=== PATIENT | female | born 1980 | race Two or more races ===

== ENCOUNTER 2025-02-06 08:54 | Emergency (ER) | payer BC, SELFPAY ==
[2025-02-06 09:17] VITALS: BP 127/86; PULSE 60; RESP 16; TEMP 37.1; O2SAT 99; BMI 35.4
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
== END 2025-02-06 11:36 | disposition home or self-care (01) ==
PROVIDERS: Emergency Provider Nurse Practitioner Family; PCP Physician Assistant
DX: S13.4XXA Sprain of ligaments of cervical spine, initial encounter (principal); S49.92XA Unspecified injury of left shoulder and upper arm, initial encounter; S09.90XA Unspecified injury of head, initial encounter; S79.912A Unspecified injury of left hip, initial encounter; V89.2XXA Person injured in unspecified motor-vehicle accident, traffic, initial encounter
CPT/HCPCS: 70450; 72125; 73030; 73502; 99284

== ENCOUNTER 2025-03-23 08:29 | Emergency (ER) | payer BC, SELFPAY ==
[2025-03-23 08:30] VITALS: BMI 33.2
[2025-03-23 08:38] VITALS: BP 161/92; PULSE 88; RESP 22; TEMP 36.9; O2SAT 99
--- NOTE | 2025-03-23 08:43 | XR_ITS ---
EXAMINATION: PA chest single view TECHNIQUE: Upright PA chest single view Date and time: March 23, 2025, 0854 hours INDICATION: Chest pain shortness of breath today FINDINGS: Normal heart size The lungs are clear. Osseous structures are intact IMPRESSION: No active disease
[2025-03-23] MEDS: DEXAMETHASONE SOD PHOS INJ 10 MG/ML VIAL PO (08:51)
--- NOTE | 2025-03-23 09:06 | EDNOTE_ITS ---
ED SOB =RME/HPI General Chief Complaint: Shortness of Breath/Dyspnea Stated Complaint: SOB Time Seen by Provider: 03/23/25 08:38 Source: patient Arrival date/time: 03/23/25 08:29 44-year-old female with no known medical history presents to the emergency room with a chief complaint of shortness of breath x 2 days. Patient states she had an episode of accidentally inhaling Clorox while cleaning yesterday afternoon. Mode of arrival: ambulatory Limitations: no limitations Related Data Home Medications ?Medication ?Instructions ?Recorded ?Confirmed valsartan 40 mg tablet 40 mg PO DAILY 07/27/2207/09 Allergies Allergy/AdvReac Type Severity Reaction Status Date / Time No Known Allergies Allergy Verified 02/06/25 08:58 Review of Systems Review of Systems Systems Reviewed: All systems reviewed, normal except as documented Constitutional Constitutional: Reports system reviewed and no additional complaints, except as documented, Denies fatigue, Denies fever(s), Denies headache(s) and Denies weakness Eyes Eyes: Reports system reviewed and no additional complaints, except as documented, Denies blurry vision and Denies change in vision ENT Ears, Nose, Mouth, and Throat: Reports system reviewed and no additional complaints, except as documented, Denies otalgia, Denies headache(s), Denies nasal congestion, Denies throat swelling and Denies vertigo Cardiovascular Cardiovascular: Reports system reviewed and no additional complaints, except as documented, Denies chest pain, Denies dyspnea and Denies dyspnea on exertion Respiratory Respiratory: Reports system reviewed and no additional complaints, except as documented, Denies chest congestion, Denies cough, Denies dyspnea, Denies dyspnea on exertion and Reports wheezing Gastrointestinal Gastrointestinal: Reports system reviewed and no additional complaints, except as documented, Denies abdominal pain, Denies cramping, Denies nausea and Denies vomiting Genitourinary Genitourinary: Reports system reviewed and no additional complaints, except as documented Musculoskeletal Musculoskeletal: Reports system reviewed and no additional complaints, except as documented and Denies back pain Integumentary/Breasts Skin/Breast: Reports system reviewed and no additional complaints, except as documented and Denies wounds Neurologic Neurologic: Reports system reviewed and no additional complaints, except as documented, Denies confusion, Denies headache(s), Denies lack of coordination, Denies vertigo and Denies weakness Psychiatric Psychiatric: Reports system reviewed and no additional complaints, except as documented, Denies anxiety, Denies confusion, Denies depression, Denies paranoia, Denies suicidal ideation and Denies tactile hallucinations Endocrine Endocrine: Reports system reviewed and no additional complaints, except as documented and Denies fatigue Hematologic/Lymphatic Hematologic/Lymphatic: Reports system reviewed and no additional complaints, except as documented and Denies lymphadenopathy Allergic/Immunologic Allergic/Immunologic: Reports system reviewed and no additional complaints, except as documented, Denies throat swelling, Denies urticaria and Reports wheezing ED Exam General Limitations: Present no limitations General appearance: Present alert and in no apparent distress Head Head exam: Present atraumatic Eye Eye exam: Present normal appearance, PERRL and EOMI ENT ENT exam: Present normal exam, normal oropharynx and mucous membranes moist Neck Neck exam: Present normal inspection, full ROM and trachea midline Chest Chest inspection: Present normal inspection and symmetric chest wall rise Respiratory Respiratory exam: Present normal lung sounds bilaterally and wheezes; Absent respiratory distress, stridor, accessory muscle use or prolonged expiratory phase Expanded Respiratory Exam Location: Left: wheezes, Right: wheezes, Upper: wheezes and Lower: wheezes Cardiovascular Cardiovascular exam: Present regular rate, normal rhythm and normal heart sounds Abdominal Exam Abdominal exam: Present soft and normal bowel sounds Extremities Exam Extremities exam: Present normal inspection and full ROM Back Exam Back exam: Present normal inspection and full ROM Neurological Exam Neurological exam: Present alert, oriented X3 and CN II-XII intact Psychiatric Psychiatric exam: Present normal affect and normal mood Skin Skin exam: Present warm, dry, intact and normal color Course Quality Measures none Orders Category Date Time Status EKG (ED ONLY) *Do not use* NOW Care 03/23/25 09:50 Completed EKG (ED Only) Stat Exams 03/23/25 09:50 Draft XR chest 1V portable Stat Exams 03/23/25 08:43 Completed B-Type Natriuretic Peptide Stat Lab 03/23/25 10:10 Completed CBC Stat Lab 03/23/25 10:10 Completed Comprehensive Metabolic Panel Stat Lab 03/23/25 10:10 Completed Free T4 (Free Thyroxine) Stat Lab 03/23/25 10:10 Completed TSH [Thyroid Stimulating Hormone] Stat Lab 03/23/25 10:10 Completed Troponin I Stat Lab 03/23/25 10:10 Completed Albuterol/Ipratr Rt Rachel [Duoneb Rt Rachel] Med 03/23/25 08:43 Discontinued 3 ml INH X1 ONE Dexamethasone Inj [Decadron Inj] Med 03/23/25 08:43 Discontinued 10 mg PO X1 ONE Vital Signs Vital signs: Vital Signs Temperature 98.5 F 03/23/25 08:38 Pulse Rate 88 03/23/25 08:38 Respiratory Rate 22 H 03/23/25 08:38 Blood Pressure 161/92 H 03/23/25 08:38 Pulse Oximetry (%) 99 03/23/25 08:38 Oxygen Delivery Method Room Air 03/23/25 08:38 PROCEDURES: EKG Interpretation #1: Date of EK03/23/25 Time of EK:46 Rate: 63 Interpretation: Reviewed by me EKG Impression: Normal sinus rhythm Shortness of Breath / Dyspnea MDM Narrative MDM Narrative:: 44-year-old female with no known medical history presents to the emergency room with a chief complaint of shortness of breath x 2 days. Patient states she had an episode of accidentally inhaling Clorox while cleaning yesterday afternoon. Patient is hemodynamically stable and in no apparent distress Physical examination shows some wheezing to the upper and lower lobes. The patient has a strong and regular rhythm S1 and S2 noted. The patient is also complaining of some mild chest pain and palpitations. EKG shows normal sinus rhythm at [address] deviation. CBC CMP troponin were all within normal limits. Chest x-ray was negative for any pneumonic infiltrate. A breathing treatment and steroids were given with significant improvement to the patient's symptoms Patient was discharged and educated to follow-up with primary care provider in the next 24 to 48 hours and return to the emergency room for any evidence of worsening signs or symptoms Patient data External records reviewed:: [facility] previous records Clinical information provided by:: patient Social determinants that could affect healthcare access:: none Patient has the following chronic illnesses:: No chronic illness How is presenting disease/condition affected by chronic disease/condition?: no chronic disease Evaluation data The following diagnostics were reviewed and interpreted by me:: lab results and radiology exam(s) Lab and/or radiology exams considered but not ordered:: Labs and radiology exams considered and ordered Interpretation Summary: Chest [id number]: Normal heart size The lungs are clear. Osseous structures are intact IMPRESSION: No active disease Medications / Prescriptions Medications or Prescriptions considered but not ordered:: Medication given Medication administrations:: Medication Administration History Discontinued Medications Albuterol/Ipratropium (Albuterol/Ipratropium (Duoneb) Rt Rachel 3 Ml Nebu) 3 ml INH X1 ONE Stop: 03/23/25 08:44 Last Admin: 03/23/25 09:29 Dose: 3 ml Documented By: CLIVE Dexamethasone Sodium Phosphate (Dexamethasone Sod Phos Inj 10 Mg/Ml Vial) 10 mg PO X1 ONE Stop: 03/23/25 08:44 Last Admin: 03/23/25 08:51 Dose: 10 mg Documented By: VG Medication given Consultations Consultation(s) initiated? (list below): No Diagnosis Shortness of Breath Differential Diagnosis: community acquired pneumonia and other (Shortness of breath/) Most likely diagnosis given after review of the tests above:: Shortness of breath Admission Indicated Admission indicated?: not indicated Admission Request Was there a request for admission?: No Disposition Plan Disposition Plan: Discharge Discharge Attestation Discharge Attestation: The patient and all family members were given an opportunity to ask questions and understood the discharge instructions. Discharge instructions specifically effects, indications for sooner follow up or return to the emergency department, and the expected course of current diagnosis. Patient condition: Stable Discharge Plan Plan Patient Disposition: HOME (Self Care) Discharge Disposition comment: Stable Prescriptions/Referrals Prescriptions/Med Rec: No Action valsartan 40 mg Tablet 40 mg PO DAILY Referrals: No Primary/Family,Physician [Primary Care Provider] - In 1 week Problem List Clinical Impression: Shortness of breath Patient/Caregiver Discharge Instructions Education Materials: ED Shortness of Breath (Dyspnea) Additional Instructions: Please follow-up with your primary care provider in the next 24 to 48 hours Chest x-ray was negative for any pneumonia or any acute findings Your blood work and urinalysis were within normal limits. Your cardiac examination was within normal limits Patient was discharged and educated to follow-up with primary care provider in the next 24 to 48 hours and return to the emergency room for any evidence of worsening signs or symptoms Print Language: Ethiopian Stand Alone Forms: Rebecca Award Info., Work/School Release, Patient Portal Info Letter PA/[employer] Supervising Physician PA/[employer] Supervising Physician: Dr. Escamilla
[2025-03-23] MEDS: ALBUTEROL/IPRATROPIUM (Duoneb) RT SOL 3 ML NEBU INH (09:29)
[2025-03-23 09:31] VITALS: PULSE 75; RESP 21; O2SAT 100
--- NOTE | 2025-03-23 09:50 | EKG_ITS ---
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
[2025-03-23 10:17] LABS: Basophils # (Auto) 0.1 Thou/mm3 (0.0-0.2); Basophils % (Auto) 1 % (0-2.5); Eosinophils # (Auto) 0.2 Thou/mm3 (0.0-0.5); Eosinophils % (Auto) 3 % (0-10); Hematocrit 40.3 % (36.0-46.0); Hemoglobin 13.8 g/dL (12.0-16.0); Immature Granulocytes Auto 0.03 Thou/mm3 (0.00-0.00); Lymphocytes # (Auto) 2.5 Thou/mm3 (1.0-4.8); Lymphocytes % (Auto) 34 % (10-50); Mean Corpuscular HGB Conc 34.2 g/dl (31.0-37.0); Mean Corpuscular Hemoglobin 28.7 pg (25.0-35.0); Mean Corpuscular Volume 84 fL (80-100); Monocytes # (Auto) 0.3 Thou/mm3 (0.0-0.8); Monocytes % (Auto) 4 % (0-12); Neutrophils # (Auto) 4.4 Thou/mm3 (1.8-7.7); Neutrophils % (Auto) 59 % (37-80); Nucleated Red Blood Cell # 0.00 Thou/mm3 (0.00-0.00); Nucleated Red Blood Cell % 0 /100 WBC (0); Platelet Count 251 Thou/mm3 (140-440); RDW Standard Deviation 39.5 fL (36.4-46.3); Red Blood Count 4.81 Miln/mm3 (4.00-5.20); White Blood Count 7.5 Thou/mm3 (3.6-11.0)
[2025-03-23 10:35] LABS: B-Type Natriuretic Peptide 23 pg/mL (0-100)
[2025-03-23 10:39] LABS: Alanine Aminotransferase 20 U/L (10-49); Albumin, Serum 5.2 gm/dL (3.5-5.0); Albumin/Globulin Ratio 2.3 (1.2-2.2); Alkaline Phosphatase 99 U/L (46-116); Anion Gap 11 (7-16); Aspartate Amino Transferase 24 U/L (0-34); BUN/Creatinine Ratio 14 Ratio (12-20); Bilirubin,Total 0.5 mg/dL (0.3-1.2); Blood Urea Nitrogen 11 mg/dL (9-23); Calcium 9.8 mg/dL (8.3-10.6); Calcium (Corrected) 9.8 mg/dL (8.5-10.1); Carbon Dioxide 24.7 mMol/L (20.0-31.0); Chloride 106 mMol/L (98-107); Creatinine (Component) 0.8 mg/dL (0.6-1.3); Estimated Creatinine Clearance 80.7 mL/min (>60); Free T4 (Free Thyroxine) 1.14 ng/dL (0.89-1.76); Globulin 2.3 gm/dL (2.3-3.5); Glucose 110 mg/dL (74-106); Osmolality,Calculated 283 (275-295); Potassium 3.5 mMol/L (3.4-5.1); Sodium 142 mMol/L (136-145); Thyroid Stimulating Hormone 2.16 uIU/mL (0.55-4.78); Total Protein 7.5 gm/dL (5.7-8.2); Troponin I < 0.002 ng/mL (0.0-0.045); eGFR > 60 See Note
[2025-03-23 10:58] VITALS: BP 119/73; PULSE 65; RESP 19; TEMP 36.8; O2SAT 98
== END 2025-03-23 11:04 | disposition home or self-care (01) ==
PROVIDERS: Emergency Provider Nurse Practitioner Family
DX: R06.02 Shortness of breath (principal); R07.9 Chest pain, unspecified; R94.31 Abnormal electrocardiogram [ECG] [EKG]
CPT/HCPCS: 36415; 71045; 80053; 83880; 84439; 84443; 84484; 85025; 93005; 94640; 99284; A9270; J1100